=== PATIENT | female | born 1965 | race Caucasian/White ===

== ENCOUNTER 2018-06-12 14:21 | Emergency (ER) | payer OTHER, SELFPAY ==
--- NOTE | 2018-06-12 15:19 | RAD ---
CHEST PA AND LATERAL: HISTORY: A 52-year-old female with a history of cough without fever. FINDINGS: There are some patchy linear and parenchymal changes in the right upper lobe, posteriorly. The possi bilities include that of minimal pneumonia, pneumonitis, or possibly scarring or chronic change. Giv en symptoms of cough, consider treatment for pneumonia and a short-term follow-up study in several we eks, to see if this parenchymal change resolves. Heart size is normal. No significant pleural effus ion. Minimal linear and parenchymal changes in the posterior right upper lobe, possibly mild pneumonia or pneumonitis. Treatment and followup for clearing or stability is suggested. POS: [facility]
== END 2018-06-12 16:19 | disposition home or self-care (01) ==
LOC: ERS 14:21
DX: J18.9 Pneumonia, unspecified organism (principal); I10 Essential (primary) hypertension; K21.9 Gastro-esophageal reflux disease without esophagitis; M19.90 Unspecified osteoarthritis, unspecified site; Z79.891 Long term (current) use of opiate analgesic
CPT/HCPCS: 71046

== ENCOUNTER 2018-10-30 12:02 | Outpatient (CLI) | payer OTHER ==
--- NOTE | 2018-10-30 12:27 | RAD ---
XR Knee Lt 4 View STANDARD History: [Knee pain] Comparison: None. Findings: No significant joint effusion. No acute fracture or malalignment. No evidence for hardware complication. Interference screw is noted at the distal femur. Impression: No acute abnormality.
--- NOTE | 2018-10-30 12:31 | RAD ---
XR Knee Rt 4 View STANDARD History: [Knee pain] Comparison: None. Findings: Mild medial compartment osteophyte formation. No acute fracture or malalignment. No joint e ffusion. Soft tissues are unremarkable. Impression: Mild patellofemoral and medial compartment degenerative changes.
== END 2018-10-30 12:03 | disposition home or self-care (01) ==
LOC: RAD 12:02
PROVIDERS: ATTEND Anesthesiology Pain Medicine
DX: M25.561 Pain in right knee (principal); M25.562 Pain in left knee; M17.11 Unilateral primary osteoarthritis, right knee

== ENCOUNTER 2020-03-31 10:55 | Outpatient (CLI) | payer OTHER | END 2020-03-31 10:56 | disposition home or self-care (01) | LOC: CTENTCT 10:55 | PROVIDERS: ATTEND Specialist | DX: J32.9 Chronic sinusitis, unspecified (principal) | CPT/HCPCS: 70486 ==

== ENCOUNTER 2020-04-24 06:50 | Outpatient (CLI) | payer OTHER ==
--- NOTE | 2020-04-24 21:08 | EKG ---
Test Reason : PREOP Blood Pressure : / mmHG Vent. Rate : 080 BPM Atrial Rate : 080 BPM P-R Int : 140 ms QRS Dur : 092 ms QT Int : 394 ms P-R-T Axes : 072 103 072 degrees QTc Int : 454 ms Normal sinus rhythm Possible Right ventricular hypertrophy Abnormal ECG No previous ECGs available Confirmed by Lisa GODOY ([id number]) on 04/24/2020 9:08:08 PM Referred By: Zara HALEY Confirmed By:Lisa GODOY
[2020-04-25 12:08] LABS: SARS-CoV-2 MS2 Positive; SARS-CoV-2 N Gene Negative; SARS-CoV-2 S Gene Negative; SARS-CoV-2 by NAA Not Detected (NotDetected); SARS-CoV-2 orf1ab Negative
== END 2020-04-24 06:51 | disposition home or self-care (01) ==
LOC: LABBT 06:50
PROVIDERS: ATTEND Specialist
DX: Z01.818 Encounter for other preprocedural examination (principal); J38.2 Nodules of vocal cords; J32.1 Chronic frontal sinusitis; J32.0 Chronic maxillary sinusitis; J34.3 Hypertrophy of nasal turbinates; J34.2 Deviated nasal septum; Z20.828 Contact with and (suspected) exposure to other viral communicable diseases
CPT/HCPCS: 85014; 87635; 93005; 93010; U0003

== ENCOUNTER 2020-04-27 09:12 | Day surgery (SDC) | payer OTHER ==
[2020-04-26 15:11] VITALS: BMI 44.6
[2020-04-27] MEDS ORDERED: AFRIN NASAL MIST 15 ML BOT ONE ×2 (09:29→09:37)
[2020-04-27] MEDS ORDERED: Lidocaine 1% w/Epinephrine 1:100K 20 ML VIAL ONE (09:37)
[2020-04-27] MEDS ORDERED: EPINEPHrine 1 MG/10 ML Abboject SYRINGE ONE (09:37)
[2020-04-27] MEDS ORDERED: Bacitracin Zinc Ointment 30 gm TUBE ONE (09:37)
[2020-04-27] MEDS ORDERED: EPINEPHrine 1 MG/ML AMP ONE (09:37)
[2020-04-27] MEDS ORDERED: Midazolam HCl 2 mg/2 ml Vial ONE (09:48)
[2020-04-27] MEDS ORDERED: Fentanyl 100 MCG/2 ML VIAL ONE ×3 (09:48→13:19)
[2020-04-27] MEDS ORDERED: HYDROmorphone 0.5 MG/0.5 ML SYRINGE ONE (09:49)
[2020-04-27] MEDS ORDERED: Propofol 500 MG/50 ML VIAL ONE (10:01)
[2020-04-27] MEDS ORDERED: Famotidine/PF 20 mg/2ml Vial ONE (10:56)
[2020-04-27] MEDS ORDERED: Ondansetron PF 4 MG/2 ML Vial ONE (11:37)
[2020-04-27] MEDS ORDERED: Glycopyrrolate 0.2 MG/ML 5 ML SYRINGE ONE (11:37)
[2020-04-27] MEDS ORDERED: EPHEDRINE 25 MG/5 ML SYRINGE ONE (11:37)
[2020-04-27] MEDS ORDERED: Succinylcholine 200 MG/10 ml SYRINGE FS ONE (11:37)
[2020-04-27] MEDS ORDERED: PHENYLEPHRINE-NS 100 MCG/ML 10 ML SYRINGE ONE (11:37)
[2020-04-27] MEDS ORDERED: Rocuronium Bromide 10 MG/ML (10ML VIAL) ONE (11:37)
[2020-04-27] MEDS ORDERED: Dexamethasone 20 MG/5 ML VIAL ONE (11:37)
[2020-04-27] MEDS ORDERED: PROPOFOL 200 MG/20 ML VIAL ONE (11:37)
[2020-04-27] MEDS ORDERED: Lidocaine 1% PF 5 ML VIAL ONE (11:37)
[2020-04-27] MEDS ORDERED: Hydrocodone-Acetamin 15 ML UDCUP ONE (14:15)
--- NOTE | 2020-04-28 13:46 | OP ---
DATE OF PROCEDURE: 04/27/2020 PREOPERATIVE DIAGNOSES: Chronic sinusitis, deviated septum, recurrent sinusitis, bilateral vocal cord nodules, laryngeal cyst, and hypertrophic inferior turbinates. POSTOPERATIVE DIAGNOSES: Chronic sinusitis, deviated septum, recurrent sinusitis, bilateral vocal cord nodules, laryngeal cyst, and hypertrophic inferior turbinates. PROCEDURES PERFORMED: 1. Microsuspension laryngoscopy with removal of bilateral vocal cord nodules. 2. Septoplasty. 3. Bilateral nasal endoscopy with submucosal resection of inferior turbinates. 4. Bilateral nasal endoscopy with frontal sinusotomy, bilateral nasal endoscopy with total ethmoidectomy, bilateral nasal endoscopy with maxillary antrostomy with removal of tissue. DESCRIPTION OF PROCEDURE: After local anesthesia was infiltrated into the submucoperichondrial plane, a standard Leroy incision was made with a #15 blade down to the level of the septal cartilage. The caudal elevator was used to elevate the mucoperichondrium from the underlying cartilage. We then proceeded beyond the bony cartilaginous junction and elevated the bony periosteum as well. Great attention was paid to the spur to prevent rent formation in the septal flap. A transcartilaginous incision was then made, while preserving an adequate dorsal and caudal cartilaginous strut for tip support. The deformed cartilage was removed and disarticulated from the bony cartilaginous junction and maxillary crest. This was placed in saline and would later be crushed and returned to the mucoperichondrial envelope. We then elevated the contralateral periosteum from the bony cartilaginous region and removed the deformed portions of the bone and bony spurs. The cartilage was then crushed and placed back into the mucoperichondrial envelope and the mucosa was re-approximated with a quilting stitch composed of rapidly absorbent gut suture. The [place] incision was also closed with interrupted gut suture. At the completion of the case, [place] splints were placed and suture secured to the caudal septum. After consent was obtained, the patient was identified, brought to the operating room, and placed on the operating room table in the supine position. Consent was obtained, notifying the patient of the possibility of additional infections, bleeding, brain injury, and eye/orbital injury. The patient was placed on the operating room table, and general endotracheal anesthesia and intravenous access was obtained. The patient was then positioned, prepped and draped for endoscopic sinus surgery. Nasal preparation included trimming nasal vestibular hairs and spraying in topical Afrin. We then placed Afrin topical solution on nasal pledgets and strategically located them intranasally. The perinasal mucosa was injected with 1% lidocaine with 1:100,000 epinephrine in the submucoperichondrial plane of the septum, lateral nasal wall, and anterior to the uncinate. The patient was then prepped and draped in a sterile fashion and positioned for endoscopic sinus surgery. With the 0-degree endoscope, the patient underwent systematic nasal endoscopy. There were no suspicious internasal masses or lesions identified. We then focused our attention to the osteomeatal complex region under the middle turbinate. The inferior turbinates were visualized with a 0 degree endoscope and outfractured with a Frandy elevator. The inferior medial aspect was cauterized with the electrocautery. Hemostasis was obtained . After adequate airway was established, we turned our attention to the contralateral side and used a similar procedure. Again, a [place] elevator was used to outfracture inferior turbinates under endoscopic visualization. With a suction cautery, the free inferior medial aspect was cauterized under direct visualization along the length of the inferior turbinate. At this point, we then turned our attention to the contralateral side and proceeded with endoscopic sinus surgery. At the completion of the case, [place] keel splints were placed in the ethmoid cavities after the ethmoidectomy. There were no complications. The patient tolerated the procedure well and was discharged to the recovery room in stable condition prior to return to the preoperative day stay with ultimate discharge home. Prescriptions for pain medication and antibiotics were provided. The patient received intramuscular Depo-Medrol during the case. Following the ethmoidectomy, we then turned our attention to the frontal nasal recess. The agger nasi cells were addressed and the frontal recess was exposed. The natural opening to the frontal sinus was identified. At this point, any obstructing shrouds of mucosa and bony fragments were removed with a curved microdebrider. The wound was then examined and found to be free of any obstructing debris. We then turned our attention to the contralateral side and performed a similar procedure again under endoscopic visualization using a 45-degree scope. We were able to visualize the frontal recess. Obstructing shrouds of mucosa and bone were removed with a microdebrider. The natural os of frontal sinus was identified and enlarged and irrigated. At this point, the frontal sinusotomy was completed and we turned to the next area of concern. The anterior face of the ethmoid bulla was entered and with the micro-debrider, dissection continued posteriorly to the ground lamella. The limits of dissection included the insertion of the middle turbinate, medial orbital wall, and base of skull. We similarly identified the frontal recess and removed shrouds of bone and debris in that region to obtain patency into the agger nasi region and frontal recess. We then entered the ground lamella and its anteroinferior aspect and proceeded posteriorly, opening the posterior ethmoid air-cell system. Again, the limits of dissection included the base of skull and medial orbital wall. The uncinate was then identified and the extent of the uncinate was appreciated by out-fracturing the uncinate with the ball-tip probe. We then used the sickle blade to disarticulate the uncinate from the lateral nasal wall. This was then removed with straight biting and upbiting punches with the remaining shrouds of mucosa and bony septum removed with the micro-debrider. The natural os of the maxillary sinus was then identified and enlarged with the maxillary punches and back biting forceps. For the microsuspension laryngoscopy, the patient was brought to the operating room and placed on the operating table in supine position. General anesthesia was obtained with a jet ventilating endotracheal tube. We then positioned the surgery and suspended the laryngoscope from the operating table. After this, we were able to visualize the larynx using binocular microscopy. The larynx was found to have two significant nodules with one appearing more cyst-like in addition to the right as opposed the left, which was purely nodular. We used the microlaryngeal heavy media operator blade to remove each nodule and at this point, the endotracheal tube was replaced with a normal ventilating endotracheal tube and we then proceeded with endoscopic sinus surgery. Job ID: [id number]
== END 2020-04-27 14:45 | disposition home or self-care (01) ==
LOC: SDC 09:12
PROVIDERS: ATTEND Specialist
PROC: 09BV8ZZ Excision of Left Ethmoid Sinus, Via Natural or Artificial Opening Endoscopic (ICD-10-PCS; principal; 2020-04-27)
PROC: 09BU8ZZ Excision of Right Ethmoid Sinus, Via Natural or Artificial Opening Endoscopic (ICD-10-PCS; principal; 2020-04-27)
PROC: 09BL8ZZ Excision of Nasal Turbinate, Via Natural or Artificial Opening Endoscopic (ICD-10-PCS; principal; 2020-04-27)
PROC: 09BM8ZZ Excision of Nasal Septum, Via Natural or Artificial Opening Endoscopic (ICD-10-PCS; principal; 2020-04-27)
PROC: 0CBT8ZZ Excision of Right Vocal Cord, Via Natural or Artificial Opening Endoscopic (ICD-10-PCS; principal; 2020-04-27)
PROC: 099Q8ZZ Drainage of Right Maxillary Sinus, Via Natural or Artificial Opening Endoscopic (ICD-10-PCS; principal; 2020-04-27)
PROC: 09BS8ZZ Excision of Right Frontal Sinus, Via Natural or Artificial Opening Endoscopic (ICD-10-PCS; principal; 2020-04-27)
PROC: 099R8ZZ Drainage of Left Maxillary Sinus, Via Natural or Artificial Opening Endoscopic (ICD-10-PCS; principal; 2020-04-27)
PROC: 0CBV8ZZ Excision of Left Vocal Cord, Via Natural or Artificial Opening Endoscopic (ICD-10-PCS; principal; 2020-04-27)
PROC: 09BT8ZZ Excision of Left Frontal Sinus, Via Natural or Artificial Opening Endoscopic (ICD-10-PCS; principal; 2020-04-27)
DX: J32.8 Other chronic sinusitis (principal); J34.2 Deviated nasal septum; J34.3 Hypertrophy of nasal turbinates; J38.2 Nodules of vocal cords; J38.7 Other diseases of larynx; Z79.899 Other long term (current) drug therapy; Z88.6 Allergy status to analgesic agent; Z88.8 Allergy status to other drugs, medicaments and biological substances
CPT/HCPCS: J0171; J1100; J1170; J2250; J2405; J2704; J3010; J7620; S0028